=== PATIENT | male | born 1965 | race Caucasian/White ===

== ENCOUNTER 2018-06-13 08:22 | Inpatient (IN) | payer OTHER ==
[2018-06-13 10:40] VITALS: BMI 50.6
--- NOTE | 2018-06-13 13:57 | HP ---
Admission [facility] [place] [facility] Chief Complaint: REHAB TX FOR DRUG ADDICTION Allergies/Adverse Reactions: Allergies Allergy/AdvReac Type Severity Reaction Status Date / Time No Known Allergies Allergy Verified 06/13/18 11:17 History of Present Illness: 53 Y/O H/MALE WITH A HX MARIJUANA, COCAINE AND HEROIN DEPENDENCE ON MMTP SEEKING DETOX TX. Exam Limitations: No Limitations - Ebola screening Have you traveled outside of the country in the last 21 days: No Have you had contact with anyone from an Ebola affected area: No Have you been sick,other than usual withdrawal symptoms: No Do you have a fever: No - Review of Systems Constitutional: Chills, Night Sweats, Changes in sleep EENT: reports: Blurred Vision, Tearing, Nose Congestion, Dental Problems (NO TEETH--PT HAS OWN DENTURES IN HIS POCKET.) Respiratory: reports: Shortness of Breath (HX ASTHMA), Wheezing Cardiac: reports: Lightheadedness GI: reports: Constipated, Diarrhea, Nausea, Poor Fluid Intake, Vomiting, Indigestion, Abdominal cramping : reports: No Symptoms Reported Musculoskeletal: reports: No Symptoms Reported Integumentary: reports: Dryness, Rash (ITCHY FOOT RASH) Neuro: reports: Numbness, Tingling, Dizziness Endocrine: reports: No Symptoms Reported Hematology: reports: No Symptoms Reported Psychiatric: reports: Orientated x3, Anxious, Depressed Other Systems: Reviewed and Negative Patient History - Patient Medical History Hx Asthma: Yes (MDI) Hx Chronic Obstructive Pulmonary Disease (COPD): No Hx Cardiac Disorders: No Hx Hypertension: Yes (ON HCTZ 25 MG PO DAILY) Hx Hypercholesterolemia: No HX Cerebrovascular Accident: No Hx Seizures: No Hx Diabetes: Yes (BORDERLINE DM -ON PILL, LAST TAKEN ON 06/12/18) Hx Gastrointestinal Disorders: No Hx Genitourinary Disorders: No Hx Sexually Transmitted Disorders: No (DENIES) Hx Renal Disease (ESRD): No Hx Thyroid Disease: No Hx Human Immunodeficiency Virus (HIV): No (NEGATIVE HX) Hx Hepatitis C: No (DENIES) Hx Depression: Yes Hx Suicide Attempt: Yes (cut left arm in 2008;DENIES S/I TODAY) Hx Schizophrenia: Yes - Patient Surgical History Past Surgical History: No Hx Neurologic Surgery: No Hx Cataract Extraction: No Hx Cardiac Surgery: No Hx Lung Surgery: No Hx Breast Surgery: No Hx Breast Biopsy: No Hx Abdominal Surgery: No Hx Appendectomy: No Hx Cholecystectomy: No Hx Genitourinary Surgery: No Hx Orthopedic Surgery: No Anesthesia Reaction: No - PPD History Previous Implant?: Yes Documented Results: Negative w/o proof Implanted On Prior [facility] Admission?: Yes PPD to be Administered?: Yes - Reproductive History Patient is a Female of Child Bearing Age (11 -55 yrs old): No (MALE) - Smoking Cessation Smoking history: Current every day smoker Have you smoked in the past 12 months: Yes Aproximately how many cigarettes per day: 5 Hx Chewing Tobacco Use: No Initiated information on smoking cessation: Yes 'Breaking Loose' booklet given: 06/13/18 - Substance & Tx. History Hx Alcohol Use: No Hx Substance Use: Yes (HEROIN/MARIJUANA/COCAINE) Substance Use Type: Cocaine, Heroin, Marijuana Hx Substance Use Treatment: Yes (CURRENTLY AT [facility]) - Substances Abused Heroin Route: Inhalation Frequency: Daily Amount used: 5 bags Age of first use: 23 Date of Last Use: 06/12/18 Marijuana Route: Smoking Frequency: Daily Amount used: $10 Age of first use: 18 Date of Last Use: 06/11/18 Family Disease History - Family Disease History Family Disease History: Diabetes: Father (HTN), Mother (HTN), Heart Disease: Father, Respiratory: Mother, Other: Father, Mother Admission Physical Exam S - Vital Signs Vital Signs: Vital Signs - 24 hr 06/13/18 10:36 Temperature 97.6 F Pulse Rate 82 Respiratory 18 Rate Blood Pressure 141/71 - Physical General Appearance: Yes: No Apparent Distress, Obese, Anxious HEENTM: Yes: EOMI, Normocephalic, DEMAR, Pharynx Normal Respiratory: Yes: Chest Non-Tender, Normal Breath Sounds, No Respiratory Distress Neck: Yes: No masses,lesions,Nodules, Supple, Trachea in good position Cardiology: Yes: Regular Rhythm, Regular Rate, S1, S2 Abdominal: Yes: Normal Bowel Sounds, Non Tender, Protuberent Genitourinary: Yes: Other (N/C) Back: Yes: Within Normal Limits Musculoskeletal: Yes: full range of Motion, Gait Steady Extremities: Yes: Normal Range of Motion, Non-Tender Neurological: Yes: academic administrator II-XII NML intact, Fully Oriented, Alert, Motor Strength 5/5 Integumentary: Yes: Dry, Warm Lymphatic: Yes: Within Normal Limits - Diagnostic (1) Cannabis dependence, uncomplicated Current Visit: Yes Status: Acute (2) Methadone maintenance therapy patient Current Visit: Yes Status: Chronic (3) Asthma Current Visit: Yes Status: Acute Qualifiers: Asthma severity: mild Asthma persistence: intermittent Asthma complication type: with acute exacerbation Qualified Code(s): J45.21 - Mild intermittent asthma with (acute) exacerbation (4) Hypertension Current Visit: Yes Status: Chronic Qualifiers: Hypertension type: essential hypertension Qualified Code(s): I10 - Essential (primary) hypertension (5) Diabetes mellitus Current Visit: Yes Status: Chronic Qualifiers: Diabetes mellitus type: type 2 (6) Tinea pedis Current Visit: Yes Status: Acute Qualifiers: Laterality: bilateral Qualified Code(s): B35.3 - Tinea pedis Cleared for Admission [facility] - Detox or Rehab Claeared for Rehab Admission: Yes [facility] Breath Alcohol Content Breath Alcohol Content: 0 Urine Drug Screen - Results Drug Screen Negative: No Urine Drug Screen Results: THC-Marijuana, OPI-Opiates, MTD-Methadone, FEN- Fentanyl Inpatient Rehab Admission - Initial Determination Are CD services needed?: Yes Free of communicable disease: Yes Not in need of hospitalization: Yes - Rehab Admission Criteria Patient is meeting Inpatient Rehab admission criteria:: Yes
[2018-06-13] MEDS ORDERED: LOPERAMIDE HCL 2 MG CAPSULE PO PRN (14:08)
[2018-06-13] MEDS ORDERED: IBUPROFEN 400 MG TABLET (FP) PO PRN (14:08)
[2018-06-13] MEDS ORDERED: hydrOXYzine PAMOATE 50 MG CAPSULE (FP) PO PRN (14:08)
[2018-06-13] MEDS ORDERED: MAGNESIUM HYDROX 2400MG/30ML ORAL SUSPENSION 30 ML CUP PO PRN (14:08)
[2018-06-13] MEDS ORDERED: P-EPHED 60MG/TRIPROLIDI 2.5MG TABLET PO PRN (14:08)
[2018-06-13] MEDS ORDERED: MAG HYDROX/AL HYDROX/SIMETH 30 ML UNIT-DOSE CUP PO PRN (14:08)
[2018-06-13] MEDS ORDERED: ACETAMINOPHEN 325 MG TABLET (FP) PO PRN (14:08)
[2018-06-13] MEDS ORDERED: NICOTINE POLACRILEX 2 MG GUM BUC PRN (14:08)
[2018-06-13] MEDS ORDERED: MAGNESIUM CITRATE 300 ML BOTTLE PO PRN (14:08)
[2018-06-13] MEDS ORDERED: MENTHOL/PHENOL 1 EACH UD MM PRN (14:08)
[2018-06-13] MEDS ORDERED: guaiFENesin/D-METHORPHAN HB 10 ML UNIT-DOSE CUPS PO PRN (14:08)
[2018-06-13] MEDS ORDERED: METHADONE HCL 10 MG TABLET PO ONE (14:14)
[2018-06-13] MEDS ORDERED: METHADONE 40 MG, METHADONE 20 MG PO ONE (15:45)
[2018-06-13] MEDS ORDERED: METHADONE HCL 10 MG TABLET ONE (16:44)
[2018-06-13] MEDS ORDERED: TUBERCULIN PPD 5 TU/0.1ML VIAL ID ONE (16:45)
[2018-06-13] MEDS ORDERED: METHADONE HCL 40 MG DISPERSABLE TABLET ONE (16:45)
[2018-06-13] MEDS: metFORMIN HCL 500 MG TABLET (FP) PO SCH (16:56)
[2018-06-13] MEDS: HYDROCHLOROTHIAZIDE 25 MG TABLET (FP) PO SCH (16:56)
[2018-06-13] MEDS: NICOTINE 14 MG/24 HOURS TOPICAL PATCH TD SCH (16:58)
[2018-06-13] MEDS: ALBUTEROL SO4 2.5/IPRATROPIUM 0.5 INH SOL 3 ML VIAL.NEB. NEB SCH ×3 (17:00→22:24)
[2018-06-13 17:25] LABS: HEMATOCRIT 46.8 % (35.4-49); HEMOGLOBIN 15.3 GM/dL (11.7-16.9); MCH 29.6 pg (25.7-33.7); MCHC 32.8 g/dl (32.0-35.9); MEAN CELL VOLUME 90.2 fl (80-96); MEAN PLT VOLUME 10.2 fl (7.5-11.1); PLATELET COUNT 267 K/MM3 (134-434); RBC 5.18 M/mm3 (4.00-5.60); RDW 14.8 % (11.9-15.9); WHITE BLOOD COUNT 12.4 K/mm3 (4.0-10.0)
[2018-06-13 17:48] LABS: ALBUMIN 3.3 g/dl (3.4-5.0); ALK PHOS 109 U/L (45-117); ANION GAP 6 MMOL/L (8-16); BILIRUBIN,TOTAL 0.5 mg/dL (0.2-1.0); BLOOD UREA NITROGEN 12 mg/dL (7-18); CALCIUM 8.9 mg/dL (8.5-10.1); CHLORIDE 107 mmol/L (98-107); CO2 29 mmol/L (21-32); CREATININE 0.7 mg/dL (0.7-1.3); GLUCOSE,RANDOM 112 mg/dL (74-106); POTASSIUM 4.5 mmol/L (3.5-5.1); SGOT/AST 10 U/L (15-37); SGPT/ALT 18 U/L (12-78); SODIUM 142 mmol/L (136-145); TOT PROT 7.6 g/dl (6.4-8.2)
[2018-06-13] MEDS: THIAMINE HCL 100 MG TABLET (FP) PO SCH (21:40)
[2018-06-13] MEDS ORDERED: MELATONIN 5 MG TABLETS PO PRN (22:00)
[2018-06-13] MEDS ORDERED: metFORMIN HCL 500 MG TABLET (FP) PO SCH (22:00)
[2018-06-13] MEDS: TOLNAFTATE 1% CREAM 15 GM TUBE TP SCH (22:22)
[2018-06-13 23:59] LABS: URINE APPEARANCE CLEAR; URINE BILIRUBIN NEGATIVE (<2.0 mg/dL); URINE COLOR YELLOW; URINE GLUCOSE (UA) NEGATIVE (NEGATIVE); URINE KETONE NEGATIVE (NEGATIVE); URINE LEUK ESTERASE NEGATIVE (NEGATIVE); URINE NITRITE NEGATIVE (NEGATIVE); URINE PROTEIN NEGATIVE (NEGATIVE); URINE UROBILINOGEN NEGATIVE mg/dL (0.2-1.0)
[2018-06-14] MEDS: ALBUTEROL SO4 8 GM HFA INHALER IH PRN (01:00)
[2018-06-14] MEDS ORDERED: METHADONE HCL 10 MG TABLET PO SCH (06:00)
[2018-06-14] MEDS ORDERED: METHADONE HCL 40 MG DISPERSABLE TABLET ONE (06:48)
[2018-06-14] MEDS ORDERED: METHADONE HCL 10 MG TABLET ONE (06:48)
[2018-06-14] MEDS: metFORMIN HCL 500 MG TABLET (FP) PO SCH ×2 (06:49→16:38)
[2018-06-14] MEDS: METHADONE 40 MG, METHADONE 20 MG PO SCH (06:50)
[2018-06-14] MEDS: ALBUTEROL SO4 2.5/IPRATROPIUM 0.5 INH SOL 3 ML VIAL.NEB. NEB SCH ×7 (06:53→20:30)
[2018-06-14] MEDS: NICOTINE 14 MG/24 HOURS TOPICAL PATCH TD SCH (10:41)
[2018-06-14] MEDS: PRENATAL VITAMINS W/ FOLIC ACID TABLET (FP) PO SCH (10:41)
[2018-06-14] MEDS: TOLNAFTATE 1% CREAM 15 GM TUBE TP SCH ×2 (10:43→21:48)
[2018-06-14] MEDS: HYDROCHLOROTHIAZIDE 25 MG TABLET (FP) PO SCH (10:43)
--- NOTE | 2018-06-14 11:12 | HP ---
Psychiatrist Admission - Data Date of interview: 06/14/18 Admission source: [facility] Identifying data: This is the first [facility] admission for this single 53 years old male, father of 3 daughters, unemployed on SSI/SSD, domiciled living with family Medical History: Significant for bronchial asthma, hypertension, type 2 diabetes mellitus and obesity. Patient is on methadone 60 mg/day. Smokes 5 cigarettes daily Psychiatric History: Reports that his first psychiatric contact was in 2008 when he was admitted to [facility] for CAH and suicidal attempt by overdose. He was diagnosed with Schizophrenia and started on psychotropic medications. Reports one subsequent admission in 2009 or 2010 to same facility for suicidal attempt for self-mutilation(cutting arm, face). Reports that up to last month he was attending [facility] in [place] and he was prescribed medications. He has no recollection of name of medication. Claims his non-compliance is due to the fact he no longer lives in [place]. Besides sleeping medication, he does not want to be on any other medication during this admission. Physical/Sexual Abuse/Trauma History: Denies Additional Comment: Reports history of 2 previous arrests including one felony conviction Vital Signs: Vital Signs - 24 hr 06/13/18 06/14/18 06/14/18 16:20 03:15 03:30 Temperature 97.9 F Pulse Rate 85 Respiratory 18 18 18 Rate Blood Pressure 119/75 06/14/18 07:26 Temperature 98.0 F Pulse Rate 76 Respiratory 18 Rate Blood Pressure 118/65 Allergies/Adverse Reactions: Allergies Allergy/AdvReac Type Severity Reaction Status Date / Time No Known Allergies Allergy Verified 06/13/18 11:17 Date of last physical exam: 06/13/18 Concur with the findings of this exam: Yes - Substance Abuse/Tx History Hx Substance Use: Yes Substance Use Type: Heroin (Started using heroin at age 23, consumes 5 bags daily. Lst used on 06/12/18), Marijuana (Started smkoing marijuana at age 18, consumes $10 worth daily. Last smoked on 06/11/18) Hx Substance Use Treatment: Yes (Currently attends [facility]) Mental Status Exam - Mental Status Exam Alert and Oriented to: Time, Place, Person Cognitive Function: Fair Patient Appearance: Well Groomed Mood: Hopeful, Euthymic Patient Behavior: Cooperative Speech Pattern: Clear Voice Loudness: Normal Thought Process: Intact Thought Disorder: Not Present Hallucinations: Denies Suicidal Ideation: Denies Homicidal Ideation: Denies Insight/Judgement: Fair Sleep: Poorly Appetite: Good Muscle strength/Tone: Normal Gait/Station: Normal Psychiatric Findings - Problem List ([place] 1, 2,3) (1) Cannabis dependence Current Visit: Yes Status: Acute (2) Opioid dependence on agonist therapy Current Visit: Yes Status: Chronic (3) Nicotine dependence Current Visit: Yes Status: Chronic (4) Schizophrenia Current Visit: Yes Status: Chronic (5) Substance-induced sleep disorder Current Visit: Yes Status: Acute (6) Asthma Current Visit: Yes Status: Chronic Qualifiers: Asthma severity: mild Asthma persistence: intermittent Asthma complication type: with acute exacerbation Qualified Code(s): J45.21 - Mild intermittent asthma with (acute) exacerbation (7) Diabetes mellitus Current Visit: Yes Status: Chronic Qualifiers: Diabetes mellitus type: type 2 (8) Hypertension Current Visit: Yes Status: Chronic Qualifiers: Hypertension type: essential hypertension Qualified Code(s): I10 - Essential (primary) hypertension - Initial Treatment Plan Initial Treatment Plan: 1) Start Melatonin 10 mg po HS prn for iinsomnia. 2) Monitor progress
--- NOTE | 2018-06-14 15:41 | EKG ---
Test Reason : Blood Pressure : / mmHG Vent. Rate : 078 BPM Atrial Rate : 078 BPM P-R Int : 144 ms QRS Dur : 092 ms QT Int : 384 ms P-R-T Axes : 072 087 065 degrees QTc Int : 437 ms NORMAL SINUS RHYTHM NORMAL ECG NO PREVIOUS ECGS AVAILABLE Confirmed by DEVAN VALENZUELA MD ([id number]) on 06/14/2018 3:41:01 PM Referred By: Confirmed By:DEVAN VALENZUELA MD
[2018-06-14] MEDS ORDERED: ALBUTEROL SO4 2.5/IPRATROPIUM 0.5 INH SOL 3 ML VIAL.NEB. NEB PRN (16:06)
--- NOTE | 2018-06-14 16:10 | PN ---
[facility] Progress Note Note: Vital Signs Temperature 98.0 F 06/14/18 07:26 Pulse Rate 76 06/14/18 07:26 Respiratory Rate 18 06/14/18 07:26 Blood Pressure 118/65 06/14/18 07:26 O2 Sat by Pulse Oximetry (%) Laboratory Last Values WBC 12.4 K/mm3 (4.0-10.0) H 06/13/18 14:00 RBC 5.18 M/mm3 (4.00-5.60) 06/13/18 14:00 Hgb 15.3 GM/dL (11.7-16.9) 06/13/18 14:00 Hct 46.8 % (35.4-49) 06/13/18 14:00 MCV 90.2 fl (80-96) 06/13/18 14:00 MCH 29.6 pg (25.7-33.7) 06/13/18 14:00 MCHC 32.8 g/dl (32.0-35.9) 06/13/18 14:00 RDW 14.8 % (11.9-15.9) 06/13/18 14:00 Plt Count 267 K/MM3 (134-434) 06/13/18 14:00 MPV 10.2 fl (7.5-11.1) 06/13/18 14:00 Sickle Cell Screen Negative (NEGATIVE) 06/13/18 14:00 Sodium 142 mmol/L (136-145) 06/13/18 14:00 Potassium 4.5 mmol/L (3.5-5.1) 06/13/18 14:00 Chloride 107 mmol/L (98-107) 06/13/18 14:00 Carbon Dioxide 29 mmol/L (21-32) 06/13/18 14:00 Anion Gap 6 MMOL/L (8-16) L 06/13/18 14:00 BUN 12 mg/dL (7-18) 06/13/18 14:00 Creatinine 0.7 mg/dL (0.7-1.3) 06/13/18 14:00 Creat Clearance w eGFR > 60 (>60) 06/13/18 14:00 POC Glucometer 166 UNITS (80-120) 06/14/18 06:49 Random Glucose 112 mg/dL (74-106) H 06/13/18 14:00 Calcium 8.9 mg/dL (8.5-10.1) 06/13/18 14:00 Total Bilirubin 0.5 mg/dL (0.2-1.0) 06/13/18 14:00 AST 10 U/L (15-37) L 06/13/18 14:00 ALT 18 U/L (12-78) 06/13/18 14:00 Alkaline Phosphatase 109 U/L (45-117) 06/13/18 14:00 Total Protein 7.6 g/dl (6.4-8.2) 06/13/18 14:00 Albumin 3.3 g/dl (3.4-5.0) L 06/13/18 14:00 Urine Color Yellow 06/13/18 Unknown Urine Appearance Clear 06/13/18 Unknown Urine pH 5.0 (5.0-8.0) 06/13/18 Unknown Ur Specific [place] 1.027 (1.001-1.035) 06/13/18 Unknown Urine Protein Negative (NEGATIVE) 06/13/18 Unknown Urine Glucose (UA) Negative (NEGATIVE) 06/13/18 Unknown Urine Ketones Negative (NEGATIVE) 06/13/18 Unknown Urine Blood Negative (NEGATIVE) 06/13/18 Unknown Urine Nitrite Negative (NEGATIVE) 06/13/18 Unknown Urine Bilirubin Negative (<2.0 mg/dL) 06/13/18 Unknown Urine Urobilinogen Negative mg/dL (0.2-1.0) 06/13/18 Unknown Ur Leukocyte Esterase Negative (NEGATIVE) 06/13/18 Unknown RPR Titer Nonreactive (NONREACTIVE) 06/13/18 14:00 HIV 1&2 Antibody Screen Negative 06/13/18 14:00 HIV P24 Antigen Negative 06/13/18 14:00 elevated white count Patient c/o on SOB secondary to asthma and wheezing Patient Aox3 no distress + b/l wheezing s1 s2 no JVD skin intact full ROM ambulating in the unit asthma exacerbation plan: DUO NEB PRN Ventolin PRN prednisone 20mg x 3 days singulair 5 mg QHS elevated WBC will start z-neli increase fluids continue to monitor
[2018-06-14] MEDS ORDERED: AZITHROMYCIN 250 MG TABLET PO ONE (17:00)
[2018-06-14] MEDS ORDERED: AZITHROMYCIN 500 MG TABLET PO ONE (17:00)
[2018-06-14] MEDS: predniSONE 20 MG TABLET (UD) PO SCH (18:28)
[2018-06-14] MEDS: THIAMINE HCL 100 MG TABLET (FP) PO SCH (21:46)
[2018-06-14] MEDS: MONTELUKAST NA 10 MG TABLET PO SCH (21:46)
[2018-06-14] MEDS: MELATONIN 5 MG TABLETS PO PRN (21:46)
[2018-06-15] MEDS: ALBUTEROL SO4 8 GM HFA INHALER IH PRN ×2 (01:39→23:28)
[2018-06-15] MEDS ORDERED: METHADONE HCL 10 MG TABLET ONE (05:21)
[2018-06-15] MEDS ORDERED: METHADONE HCL 40 MG DISPERSABLE TABLET ONE (05:21)
[2018-06-15] MEDS: METHADONE 40 MG, METHADONE 20 MG PO SCH (06:21)
[2018-06-15] MEDS: metFORMIN HCL 500 MG TABLET (FP) PO SCH ×2 (06:21→16:51)
[2018-06-15] MEDS: predniSONE 20 MG TABLET (UD) PO SCH (10:33)
[2018-06-15] MEDS: ALBUTEROL SO4 2.5/IPRATROPIUM 0.5 INH SOL 3 ML VIAL.NEB. NEB SCH ×4 (10:33→21:33)
[2018-06-15] MEDS: PRENATAL VITAMINS W/ FOLIC ACID TABLET (FP) PO SCH (10:33)
[2018-06-15] MEDS: HYDROCHLOROTHIAZIDE 25 MG TABLET (FP) PO SCH (10:33)
[2018-06-15] MEDS: NICOTINE 14 MG/24 HOURS TOPICAL PATCH TD SCH (10:34)
[2018-06-15] MEDS: AZITHROMYCIN 250 MG TABLET PO SCH (10:35)
[2018-06-15] MEDS: TOLNAFTATE 1% CREAM 15 GM TUBE TP SCH ×2 (10:35→21:33)
[2018-06-15] MEDS: THIAMINE HCL 100 MG TABLET (FP) PO SCH (21:33)
[2018-06-15] MEDS: MONTELUKAST NA 10 MG TABLET PO SCH (21:33)
[2018-06-16] MEDS ORDERED: METHADONE HCL 40 MG DISPERSABLE TABLET ONE (04:26)
[2018-06-16] MEDS ORDERED: METHADONE HCL 10 MG TABLET ONE (04:26)
[2018-06-16] MEDS: metFORMIN HCL 500 MG TABLET (FP) PO SCH ×2 (06:15→16:57)
[2018-06-16] MEDS: METHADONE 40 MG, METHADONE 20 MG PO SCH (06:16)
[2018-06-16] MEDS: AZITHROMYCIN 250 MG TABLET PO SCH (10:24)
[2018-06-16] MEDS: PRENATAL VITAMINS W/ FOLIC ACID TABLET (FP) PO SCH (11:02)
[2018-06-16] MEDS: predniSONE 20 MG TABLET (UD) PO SCH (11:02)
[2018-06-16] MEDS: HYDROCHLOROTHIAZIDE 25 MG TABLET (FP) PO SCH (11:02)
[2018-06-16] MEDS: NICOTINE 14 MG/24 HOURS TOPICAL PATCH TD SCH (11:02)
[2018-06-16] MEDS: ALBUTEROL SO4 2.5/IPRATROPIUM 0.5 INH SOL 3 ML VIAL.NEB. NEB SCH ×3 (11:03→16:56)
[2018-06-16] MEDS: TOLNAFTATE 1% CREAM 15 GM TUBE TP SCH ×2 (11:04→21:34)
[2018-06-16] MEDS: ALBUTEROL SO4 8 GM HFA INHALER IH PRN (16:57)
[2018-06-16] MEDS: THIAMINE HCL 100 MG TABLET (FP) PO SCH (21:34)
[2018-06-16] MEDS: MONTELUKAST NA 10 MG TABLET PO SCH (21:34)
[2018-06-16] MEDS: MELATONIN 5 MG TABLETS PO PRN (21:35)
[2018-06-17] MEDS ORDERED: METHADONE HCL 40 MG DISPERSABLE TABLET ONE (04:33)
[2018-06-17] MEDS ORDERED: METHADONE HCL 10 MG TABLET ONE (04:33)
[2018-06-17] MEDS: ALBUTEROL SO4 8 GM HFA INHALER IH PRN ×2 (04:42→16:45)
[2018-06-17] MEDS: metFORMIN HCL 500 MG TABLET (FP) PO SCH ×2 (07:09→16:45)
[2018-06-17] MEDS: METHADONE 40 MG, METHADONE 20 MG PO SCH (07:09)
[2018-06-17] MEDS: ALBUTEROL SO4 2.5/IPRATROPIUM 0.5 INH SOL 3 ML VIAL.NEB. NEB SCH ×2 (09:00→16:45)
[2018-06-17] MEDS: AZITHROMYCIN 250 MG TABLET PO SCH (10:35)
[2018-06-17] MEDS: HYDROCHLOROTHIAZIDE 25 MG TABLET (FP) PO SCH (10:35)
[2018-06-17] MEDS: PRENATAL VITAMINS W/ FOLIC ACID TABLET (FP) PO SCH (10:36)
[2018-06-17] MEDS: NICOTINE 14 MG/24 HOURS TOPICAL PATCH TD SCH (10:36)
[2018-06-17] MEDS: TOLNAFTATE 1% CREAM 15 GM TUBE TP SCH ×2 (10:36→21:50)
[2018-06-17] MEDS: THIAMINE HCL 100 MG TABLET (FP) PO SCH (21:50)
[2018-06-17] MEDS: MELATONIN 5 MG TABLETS PO PRN (21:50)
[2018-06-17] MEDS: MONTELUKAST NA 10 MG TABLET PO SCH (21:50)
[2018-06-18] MEDS ORDERED: METHADONE HCL 10 MG TABLET ONE (03:22)
[2018-06-18] MEDS ORDERED: METHADONE HCL 40 MG DISPERSABLE TABLET ONE (03:23)
[2018-06-18] MEDS: METHADONE 40 MG, METHADONE 20 MG PO SCH (06:19)
[2018-06-18] MEDS: metFORMIN HCL 500 MG TABLET (FP) PO SCH ×2 (06:19→17:22)
[2018-06-18] MEDS: NICOTINE 14 MG/24 HOURS TOPICAL PATCH TD SCH (10:54)
[2018-06-18] MEDS: PRENATAL VITAMINS W/ FOLIC ACID TABLET (FP) PO SCH (10:54)
[2018-06-18] MEDS: HYDROCHLOROTHIAZIDE 25 MG TABLET (FP) PO SCH (10:54)
[2018-06-18] MEDS: AZITHROMYCIN 250 MG TABLET PO SCH (10:55)
[2018-06-18] MEDS: ALBUTEROL SO4 2.5/IPRATROPIUM 0.5 INH SOL 3 ML VIAL.NEB. NEB SCH (10:55)
[2018-06-18] MEDS: TOLNAFTATE 1% CREAM 15 GM TUBE TP SCH ×2 (10:56→21:53)
[2018-06-18] MEDS: MELATONIN 5 MG TABLETS PO PRN (21:52)
[2018-06-18] MEDS: THIAMINE HCL 100 MG TABLET (FP) PO SCH (21:52)
[2018-06-18] MEDS: MONTELUKAST NA 10 MG TABLET PO SCH (21:52)
[2018-06-19] MEDS ORDERED: METHADONE HCL 10 MG TABLET ONE (06:28)
[2018-06-19] MEDS ORDERED: METHADONE HCL 40 MG DISPERSABLE TABLET ONE (06:28)
[2018-06-19] MEDS: METHADONE 40 MG, METHADONE 20 MG PO SCH (06:29)
[2018-06-19] MEDS: metFORMIN HCL 500 MG TABLET (FP) PO SCH ×2 (06:29→17:14)
[2018-06-19] MEDS: ALBUTEROL SO4 2.5/IPRATROPIUM 0.5 INH SOL 3 ML VIAL.NEB. NEB SCH ×2 (06:31→10:38)
[2018-06-19] MEDS: PRENATAL VITAMINS W/ FOLIC ACID TABLET (FP) PO SCH (10:36)
[2018-06-19] MEDS: NICOTINE 14 MG/24 HOURS TOPICAL PATCH TD SCH (10:36)
[2018-06-19] MEDS: TOLNAFTATE 1% CREAM 15 GM TUBE TP SCH ×2 (10:36→21:43)
[2018-06-19] MEDS: HYDROCHLOROTHIAZIDE 25 MG TABLET (FP) PO SCH (10:36)
[2018-06-19] MEDS: ALBUTEROL SO4 8 GM HFA INHALER IH PRN (10:37)
[2018-06-19] MEDS: THIAMINE HCL 100 MG TABLET (FP) PO SCH (21:42)
[2018-06-19] MEDS: MONTELUKAST NA 10 MG TABLET PO SCH (21:42)
[2018-06-19] MEDS: MELATONIN 5 MG TABLETS PO PRN (21:43)
[2018-06-20] MEDS ORDERED: METHADONE HCL 40 MG DISPERSABLE TABLET ONE (06:03)
[2018-06-20] MEDS ORDERED: METHADONE HCL 10 MG TABLET ONE (06:03)
[2018-06-20] MEDS: metFORMIN HCL 500 MG TABLET (FP) PO SCH ×2 (06:14→17:12)
[2018-06-20] MEDS: METHADONE 40 MG, METHADONE 20 MG PO SCH (06:14)
[2018-06-20] MEDS: TOLNAFTATE 1% CREAM 15 GM TUBE TP SCH ×2 (10:42→21:42)
[2018-06-20] MEDS: PRENATAL VITAMINS W/ FOLIC ACID TABLET (FP) PO SCH (10:42)
[2018-06-20] MEDS: HYDROCHLOROTHIAZIDE 25 MG TABLET (FP) PO SCH (10:42)
[2018-06-20] MEDS: NICOTINE 14 MG/24 HOURS TOPICAL PATCH TD SCH (10:43)
[2018-06-20] MEDS: ALBUTEROL SO4 8 GM HFA INHALER IH PRN (19:53)
[2018-06-20] MEDS: MELATONIN 5 MG TABLETS PO PRN (21:41)
[2018-06-20] MEDS: MONTELUKAST NA 10 MG TABLET PO SCH (21:41)
[2018-06-20] MEDS: THIAMINE HCL 100 MG TABLET (FP) PO SCH (21:41)
[2018-06-21] MEDS ORDERED: METHADONE HCL 40 MG DISPERSABLE TABLET ONE (04:36)
[2018-06-21] MEDS ORDERED: METHADONE HCL 10 MG TABLET ONE (04:36)
[2018-06-21] MEDS: metFORMIN HCL 500 MG TABLET (FP) PO SCH ×2 (06:26→17:14)
[2018-06-21] MEDS: METHADONE 40 MG, METHADONE 20 MG PO SCH (06:27)
[2018-06-21] MEDS: HYDROCHLOROTHIAZIDE 25 MG TABLET (FP) PO SCH (10:42)
[2018-06-21] MEDS: PRENATAL VITAMINS W/ FOLIC ACID TABLET (FP) PO SCH (10:42)
[2018-06-21] MEDS: NICOTINE 14 MG/24 HOURS TOPICAL PATCH TD SCH (10:44)
[2018-06-21] MEDS: TOLNAFTATE 1% CREAM 15 GM TUBE TP SCH ×2 (11:08→21:46)
[2018-06-21] MEDS: MELATONIN 5 MG TABLETS PO PRN (21:45)
[2018-06-21] MEDS: THIAMINE HCL 100 MG TABLET (FP) PO SCH (21:45)
[2018-06-21] MEDS: MONTELUKAST NA 10 MG TABLET PO SCH (21:45)
[2018-06-22] MEDS ORDERED: METHADONE HCL 40 MG DISPERSABLE TABLET ONE (04:29)
[2018-06-22] MEDS ORDERED: METHADONE HCL 10 MG TABLET ONE (04:29)
[2018-06-22] MEDS: metFORMIN HCL 500 MG TABLET (FP) PO SCH ×2 (06:24→17:56)
[2018-06-22] MEDS: METHADONE 40 MG, METHADONE 20 MG PO SCH (06:25)
[2018-06-22] MEDS ORDERED: PT OWN MED DRAWER 7, Y5N ONE (09:27)
[2018-06-22] MEDS: PRENATAL VITAMINS W/ FOLIC ACID TABLET (FP) PO SCH (10:33)
[2018-06-22] MEDS: NICOTINE 14 MG/24 HOURS TOPICAL PATCH TD SCH (10:34)
[2018-06-22] MEDS: TOLNAFTATE 1% CREAM 15 GM TUBE TP SCH ×2 (10:34→21:52)
[2018-06-22] MEDS: HYDROCHLOROTHIAZIDE 25 MG TABLET (FP) PO SCH (10:34)
[2018-06-22] MEDS: MELATONIN 5 MG TABLETS PO PRN (21:50)
[2018-06-22] MEDS: MONTELUKAST NA 10 MG TABLET PO SCH (21:50)
[2018-06-22] MEDS: THIAMINE HCL 100 MG TABLET (FP) PO SCH (21:50)
[2018-06-22] MEDS ORDERED: ONDANSETRON *ODT* 4 MG TABLET SL ONE (23:56)
[2018-06-23] MEDS ORDERED: METHADONE HCL 10 MG TABLET ONE (05:27)
[2018-06-23] MEDS ORDERED: METHADONE HCL 40 MG DISPERSABLE TABLET ONE (05:27)
[2018-06-23] MEDS: metFORMIN HCL 500 MG TABLET (FP) PO SCH ×2 (06:02→16:51)
[2018-06-23] MEDS: METHADONE 40 MG, METHADONE 20 MG PO SCH (06:02)
[2018-06-23] MEDS: HYDROCHLOROTHIAZIDE 25 MG TABLET (FP) PO SCH (10:24)
[2018-06-23] MEDS: PRENATAL VITAMINS W/ FOLIC ACID TABLET (FP) PO SCH (10:24)
[2018-06-23] MEDS: NICOTINE 14 MG/24 HOURS TOPICAL PATCH TD SCH (10:25)
[2018-06-23] MEDS: TOLNAFTATE 1% CREAM 15 GM TUBE TP SCH ×2 (10:25→21:56)
[2018-06-23] MEDS: THIAMINE HCL 100 MG TABLET (FP) PO SCH (21:56)
[2018-06-23] MEDS: MELATONIN 5 MG TABLETS PO PRN (21:57)
[2018-06-23] MEDS: MONTELUKAST NA 10 MG TABLET PO SCH (22:09)
[2018-06-24] MEDS ORDERED: METHADONE HCL 40 MG DISPERSABLE TABLET ONE (05:55)
[2018-06-24] MEDS ORDERED: METHADONE HCL 10 MG TABLET ONE (05:55)
[2018-06-24] MEDS: metFORMIN HCL 500 MG TABLET (FP) PO SCH ×2 (06:28→17:03)
[2018-06-24] MEDS: METHADONE 40 MG, METHADONE 20 MG PO SCH (06:28)
[2018-06-24] MEDS: HYDROCHLOROTHIAZIDE 25 MG TABLET (FP) PO SCH (10:33)
[2018-06-24] MEDS: NICOTINE 14 MG/24 HOURS TOPICAL PATCH TD SCH (10:34)
[2018-06-24] MEDS: PRENATAL VITAMINS W/ FOLIC ACID TABLET (FP) PO SCH (10:34)
[2018-06-24] MEDS: ALBUTEROL SO4 8 GM HFA INHALER IH PRN (10:34)
[2018-06-24] MEDS: TOLNAFTATE 1% CREAM 15 GM TUBE TP SCH ×2 (10:36→21:58)
[2018-06-24] MEDS: MELATONIN 5 MG TABLETS PO PRN (21:58)
[2018-06-24] MEDS: THIAMINE HCL 100 MG TABLET (FP) PO SCH (21:58)
[2018-06-24] MEDS: MONTELUKAST NA 10 MG TABLET PO SCH (21:58)
[2018-06-25] MEDS ORDERED: METHADONE HCL 10 MG TABLET ONE (02:44)
[2018-06-25] MEDS ORDERED: METHADONE HCL 40 MG DISPERSABLE TABLET ONE (02:44)
[2018-06-25] MEDS: METHADONE 40 MG, METHADONE 20 MG PO SCH (06:05)
[2018-06-25] MEDS: metFORMIN HCL 500 MG TABLET (FP) PO SCH ×2 (06:06→17:05)
[2018-06-25] MEDS: HYDROCHLOROTHIAZIDE 25 MG TABLET (FP) PO SCH (11:19)
[2018-06-25] MEDS: NICOTINE 14 MG/24 HOURS TOPICAL PATCH TD SCH (11:19)
[2018-06-25] MEDS: PRENATAL VITAMINS W/ FOLIC ACID TABLET (FP) PO SCH (11:20)
[2018-06-25] MEDS: TOLNAFTATE 1% CREAM 15 GM TUBE TP SCH ×2 (11:20→21:54)
[2018-06-25] MEDS: MELATONIN 5 MG TABLETS PO PRN (21:53)
[2018-06-25] MEDS: MONTELUKAST NA 10 MG TABLET PO SCH (21:53)
[2018-06-25] MEDS: THIAMINE HCL 100 MG TABLET (FP) PO SCH (21:53)
[2018-06-26] MEDS ORDERED: METHADONE HCL 10 MG TABLET ONE (03:22)
[2018-06-26] MEDS ORDERED: METHADONE HCL 40 MG DISPERSABLE TABLET ONE (03:23)
[2018-06-26] MEDS: METHADONE 40 MG, METHADONE 20 MG PO SCH (06:05)
[2018-06-26] MEDS: metFORMIN HCL 500 MG TABLET (FP) PO SCH (06:07)
[2018-06-26 06:53] VITALS: BP 118/82; PULSE 79; TEMP 98.1
--- NOTE | 2018-06-26 08:53 | PN ---
Psychiatric Progress Note Vital Signs: Vital Signs Period Temp Pulse Resp BP Sys/Engel Pulse Ox Last 24 Hr 98.1 F 79-81 16-20 118-128/67-82 Date of Session: 06/26/18 Chief Complaint:: "Discharge" HPI: Patient was admitted to for opiate dependence. ROS: Significant for bronchial asthma, hypertension, type 2 diabetes mellitus and obesity. Current Medications: Active Medications Generic Name Dose Route Start Last Admin Trade Name Freq PRN Reason Stop Dose Admin Acetaminophen 650 mg 06/13/18 14:08 Tylenol - PO Q4H PRN FEVER Al Hydroxide/Mg Hydroxide 30 ml 06/13/18 14:08 06/22/18 21:51 Mylanta Oral Suspension - PO 30 ml Q6H PRN Administration DYSPEPSIA Albuterol Sulfate 2 puff 06/13/18 14:13 06/24/18 10:34 Ventolin Hfa Inhaler - IH 2 inh Q4H PRN Administration ASTHMA Albuterol/Ipratropium 1 amp 06/14/18 16:06 06/21/18 10:44 Duoneb - NEB 1 amp QID PRN Administration WHEEZING Eucalyptus/Menthol/Phenol/Sorbitol 1 each 06/13/18 14:08 Cepastat Lozenge - MM Q4H PRN SORE THROAT Guaifenesin 10 ml 06/13/18 14:08 Robitussin Dm - PO Q6H PRN COUGH Hydrochlorothiazide 25 mg 06/13/18 15:30 06/25/18 11:19 Hctz - PO 25 mg DAILY CINDY Administration Hydroxyzine Pamoate 50 mg 06/13/18 14:08 Vistaril - PO Q4H PRN AGITATION Ibuprofen 400 mg 06/13/18 14:08 Motrin - PO Q6H PRN Pain level 4-6 Loperamide HCl 4 mg 06/13/18 14:08 Imodium - PO Q6H PRN DIARRHEA Magnesium Citrate 300 ml 06/13/18 14:08 Citroma - PO Q48H PRN CONSTIPATION Magnesium Hydroxide 30 ml 06/13/18 14:08 Milk Of Magnesia - PO DAILY PRN CONSTIPATION Melatonin 10 mg 06/14/18 12:03 06/25/18 21:53 Melatonin PO 10 mg HS PRN Administration INSOMNIA Metformin HCl 500 mg 06/13/18 16:30 06/26/18 06:07 Glucophage - PO 500 mg BID@0700,1630 CINDY Administration Methadone HCl 40 mg/ Methadone 60 mg 06/20/18 06:00 06/26/18 06:05 HCl 20 mg PO 60 mg DAILY@0600 CINDY Administration Montelukast Sodium 10 mg 06/14/18 22:00 06/25/18 21:53 Singulair - PO 10 mg HS CINDY Administration Nicotine 14 mg 06/13/18 15:30 06/25/18 11:19 Nicoderm Patch - TD 14 mg DAILY CINDY Administration Nicotine Polacrilex 2 mg 06/13/18 14:08 Nicorette Gum - BUC Q2H PRN NICOTINE REPLACEMENT RX Multivit/Folic Acid/Iron 1 tab 06/14/18 10:00 06/25/18 11:20 Vitamins (Sjr) - PO 1 tab DAILY CINDY Administration Pseudoephedrine/Triprolidine 1 combo 06/13/18 14:08 Actifed - PO TID PRN NASAL CONGESTION Thiamine HCl 100 mg 06/13/18 22:00 06/25/18 21:53 Vitamin B1 - PO 100 mg HS CINDY Administration Tolnaftate 1 applic 06/13/18 22:00 06/25/18 21:54 Tinactin 1% Cream - TP Not Given BID [facility] Medication(s) Change(s): No. Current Side Effect: No Lab tests ordered: No Lab tests reviewed: Yes Provider note:: Patient able to complete rehab on 06/26/18. He has met his treatment goals and is able to identify behaviors that contribute to relapsing. Through participation of this program patient has learned the importance of changing his behaviors and the need for more struture in his life. Pt. will continue to address his issues at the [facility] outpatient clinic. Patient is stable for discharge on 06/26/18. Total face to face time:: 35 Mental Status Exam - Mental Status Exam Alert and Oriented to: Time, Place, Person Cognitive Function: Good Patient Appearance: Well Groomed Mood: Hopeful Affect: Appropriate, Mood Congruent Patient Behavior: Appropriate, Cooperative Speech Pattern: Clear, Appropriate Voice Loudness: Normal Thought Process: Intact, Goal Oriented Thought Disorder: Not Present Hallucinations: Denies Suicidal Ideation: Denies Homicidal Ideation: Denies Insight/Judgement: Good Sleep: Well Appetite: Good Muscle strength/Tone: Normal Gait/Station: Normal Psychiatric Treatment Plan - Problem List (1) Cannabis dependence Current Visit: Yes (2) Substance-induced sleep disorder Current Visit: Yes (3) Nicotine dependence Current Visit: Yes (4) Opioid dependence on agonist therapy Current Visit: Yes (5) Schizophrenia Current Visit: Yes
[2018-06-26] MEDS: TOLNAFTATE 1% CREAM 15 GM TUBE TP SCH (10:58)
[2018-06-26] MEDS: NICOTINE 14 MG/24 HOURS TOPICAL PATCH TD SCH (10:58)
[2018-06-26] MEDS: PRENATAL VITAMINS W/ FOLIC ACID TABLET (FP) PO SCH (10:58)
[2018-06-26] MEDS: HYDROCHLOROTHIAZIDE 25 MG TABLET (FP) PO SCH (10:58)
--- NOTE | 2018-06-26 11:11 | PN ---
[facility] Progress Note Note: PT REPORTS HE HAS A PRIMARY CARE DOCTOR WITH [facility]. RX SENT TO [facility] FOR PT PICKUP AFER DISCHARGE. FOLLOW UP WITH PMD FOR MEDICAL MANAGEMENT IN 1-2 WEEKS.
== END 2018-06-26 11:45 | disposition home or self-care (01) | DRG 895 ==
LOC: YASAS 08:22 → Y5N 15:17
PROVIDERS: ADMIT Psychiatry & Neurology Psychiatry; ATTEND Psychiatry & Neurology Psychiatry
PROC: HZ42ZZZ Group Counseling for Substance Abuse Treatment, Cognitive-Behavioral (ICD-10-PCS; principal; 2018-06-13)
DX: F14.20 Cocaine dependence, uncomplicated (principal); F11.20 Opioid dependence, uncomplicated; F19.282 Other psychoactive substance dependence with psychoactive substance-induced sleep disorder; J45.21 Mild intermittent asthma with (acute) exacerbation; Z68.43 Body mass index [BMI] 50.0-59.9, adult; F12.20 Cannabis dependence, uncomplicated; F20.9 Schizophrenia, unspecified; I10 Essential (primary) hypertension; E11.9 Type 2 diabetes mellitus without complications; Z79.84 Long term (current) use of oral hypoglycemic drugs; B35.3 Tinea pedis; E66.01 Morbid (severe) obesity due to excess calories
CPT/HCPCS: 36415; 80053; 81003; 82962; 85027; 85660; 86593; 86803; 87389; 93005; 93010; 94640; J7620; Q0162

== ENCOUNTER 2018-09-08 14:12 | Inpatient (IN) | payer OTHER ==
[2018-09-08 15:10] VITALS: BMI 52.4
--- NOTE | 2018-09-08 17:56 | HP ---
COWS - Scale Resting Pulse: 2= [place] 101-120 Sweatin= Chills/Flushing Restless Observation: 1= Difficult to Sit Still Pupil Size: 1= Pupils >than Normal Bone or Joint Aches: 2= Severe Diffuse Aches Runny Nose/ Eye Tearin= Runny Nose/Eyes GI Upset > 30mins: 2= Nausea/Diarrhea Tremor Observation: 2= Slight Tremor Visible Yawning Observation: 1= 1-2x During Session Anxiety or Irritability: 2=Irritable/Anxious Goose Flesh Skin: 0=Smooth Skin COWS Score: 16 CIWA Score Nausea/Vomitin Muscle Tremors: 2 Anxiety: 2 Agitation: 2 Paroxysmal Sweats: 1-Minimal Palms Moist Orientation: 0-Oriented Tacttile Disturbances: 1-Very Mild Itch/Numbness Auditory Disturbances: 1-Very Mild Visual Disturbances: 0-None Headache: 2-Mild CIWA-Ar Total Score: 13 - Admission Criteria OASAS Guidelines: Admission for Medically Managed Detox: Requires at least one of the followin. CIWA greater than 12 2. Seizures within the past 24 hours 3. Delirium tremens within the past 24 hours 4. Hallucinations within the past 24 hours 5. Acute intervention needed for co occurring medical disorder 6. Acute intervention needed for co occurring psychiatric disorder 7. Severe withdrawal that cannot be handled at a lower level of care (continued vomiting, continued diarrhea, abnormal vital signs) requiring intravenous medication and/or fluids 8. Admission ROS [facility] Chief Complaint: i nne help to top using heroin,alcohol,marijuana Allergies/Adverse Reactions: Allergies Allergy/AdvReac Type Severity Reaction Status Date / Time No Known Allergies Allergy Verified 09/08/18 18:20 History of Present Illness: this 53 years old male with heroin,alcohoo and marijuana dependence,seeking detox,withdrawal symptom,last detox 03/18 promeza completed, [facility] 06/13/18 to 06/26/18 multiple admissions in the past but keep relapsing syncope history of hypertension ,non compliance nicotine dependence obesity asthma longest period of sobriety 10 years plan for inpatient rehab after detox - Ebola screening Have you traveled outside of the country in the last 21 days: No (N) Have you had contact with anyone from an Ebola affected area: No Have you been sick,other than usual withdrawal symptoms: No Do you have a fever: No - Review of Systems Constitutional: Chills, Loss of Appetite, Malaise, Night Sweats, Changes in sleep, Weakness EENT: reports: Tearing, Nose Congestion Respiratory: reports: No Symptoms reported, Other (asthma) Cardiac: reports: Palpitations GI: reports: Diarrhea, Nausea, Abdominal cramping : reports: No Symptoms Reported Musculoskeletal: reports: Back Pain, Joint Pain, Muscle Pain, Joint Stiffness Integumentary: reports: Dryness Neuro: reports: Tremors Endocrine: reports: No Symptoms Reported Hematology: reports: No Symptoms Reported Psychiatric: reports: No Sypmtoms Reported, Judgement Intact, Mood/Affect Appropiate, Orientated x3 Patient History - Patient Medical History Hx Asthma: Yes (MDI) Hx Chronic Obstructive Pulmonary Disease (COPD): No Hx Cardiac Disorders: No Hx Hypertension: Yes (ON HCTZ 25 MG PO DAILY) Hx Hypercholesterolemia: No HX Cerebrovascular Accident: No Hx Seizures: No Hx Diabetes: Yes (BORDERLINE DM -ON PILL, LAST TAKEN ON 06/12/18) Hx Gastrointestinal Disorders: No Hx Genitourinary Disorders: No Hx Sexually Transmitted Disorders: No (DENIES) Hx Renal Disease (ESRD): No Hx Thyroid Disease: No Hx Human Immunodeficiency Virus (HIV): No (NEGATIVE HX) Hx Hepatitis C: No (DENIES) Hx Depression: Yes Hx Suicide Attempt: Yes (cut left arm in 2008;DENIES S/I TODAY) Hx Schizophrenia: Yes (no med) Other Medical History: no suicdal,no homicidal - Patient Surgical History Past Surgical History: No Hx Neurologic Surgery: No Hx Cataract Extraction: No Hx Cardiac Surgery: No Hx Lung Surgery: No Hx Breast Surgery: No Hx Breast Biopsy: No Hx Abdominal Surgery: No Hx Appendectomy: No Hx Cholecystectomy: No Hx Genitourinary Surgery: No Hx Section: No Hx Orthopedic Surgery: No Anesthesia Reaction: No - PPD History Previous Implant?: Yes Documented Results: Negative w/proof Implanted On Prior R Admission?: Yes Date: 06/15/18 Results: 0 mm PPD to be Administered?: No - Smoking Cessation Smoking history: Current every day smoker Have you smoked in the past 12 months: Yes Aproximately how many cigarettes per day: 10 Cigars Per Day: 0 Hx Chewing Tobacco Use: No Initiated information on smoking cessation: Yes 'Breaking Loose' booklet given: 09/08/18 - Substance & Tx. History Hx Alcohol Use: Yes Hx Substance Use: Yes Substance Use Type: Alcohol, Heroin, Tranquilizers Hx Substance Use Treatment: Yes (detox pro[facility] 03/18 completed,[facility] to 06/26/18) - Substances Abused Heroin Route: Inhalation Frequency: Daily Amount used: 6 to 7 bags Age of first use: 23 Date of Last Use: 09/07/18 Alcohol Route: Oral Frequency: Daily Amount used: 2pints of alise/6 packs of 20 ozs of beer Age of first use: 20 Date of Last Use: 09/07/18 Marijuana/Hashish Route: Smoking Frequency: 3-6 times per week Amount used: 30$ Age of first use: 18 Date of Last Use: 09/06/18 Family Disease History - Family Disease History Family Disease History: Diabetes: Father (HTN), Mother (HTN), Heart Disease: Father, Respiratory: Mother, Other: Father, Mother Admission Physical Exam S - Vital Signs Vital Signs: Vital Signs - 24 hr 09/08/18 15:08 Temperature 98.8 F Pulse Rate 102 H Respiratory 20 Rate Blood Pressure 154/99 - Physical General Appearance: Yes: Moderate Distress, Obese, Tremorous, Irritable, Sweating, Anxious HEENTM: Yes: Normal ENT Inspection, DEMAR, Pharynx Normal Respiratory: Yes: Normal Breath Sounds, No Respiratory Distress, Wheezing Neck: Yes: Within Normal Limits, Supple, Trachea in good position Breast: Yes: Within Normal Limits Cardiology: Yes: Tachycardia Abdominal: Yes: Within Normal Limits, Normal Bowel Sounds, Non Tender, Soft Genitourinary: Yes: Within Normal Limits Back: Yes: Muscle Spasm Musculoskeletal: Yes: full range of Motion, Back pain, Joint Stiffness, Muscle Pain Extremities: Yes: Normal Range of Motion, Tremors Neurological: Yes: jordan worker II-XII NML intact, Fully Oriented, Alert, Motor Strength 5/5 Integumentary: Yes: Dry Lymphatic: Yes: Within Normal Limits - Diagnostic (1) Opioid dependence with withdrawal Current Visit: Yes Status: Acute (2) Alcohol dependence with uncomplicated withdrawal Current Visit: Yes Status: Acute (3) DM2 (diabetes mellitus, type 2) Current Visit: Yes Status: Acute (4) Asthma Current Visit: No Status: Chronic Qualifiers: Asthma severity: mild Asthma persistence: intermittent Asthma complication type: with acute exacerbation Qualified Code(s): J45.21 - Mild intermittent asthma with (acute) exacerbation (5) Hypertension Current Visit: No Status: Chronic Qualifiers: Hypertension type: unspecified Qualified Code(s): I10 - Essential (primary ) hypertension (6) Schizophrenia Current Visit: No Status: Chronic (7) Essential hypertension Current Visit: Yes Status: Acute (8) Syncope Current Visit: Yes Status: Acute (9) Obesity Current Visit: Yes Status: Acute Cleared for Admission S - Detox or Rehab [facility] Level of Care: Medically Managed Detox Regimen/Protocol: Methadone/Librium S Breath Alcohol Content Breath Alcohol Content: 0 Urine Drug Screen - Results Drug Screen Negative: No Urine Drug Screen Results: THC-Marijuana, OPI-Opiates, MTD-Methadone, FEN- Fentanyl
[2018-09-08] MEDS ORDERED: METHADONE HCL 10 MG TABLET (FOR DETOX USE ONLY) PO ONE ×2 (18:10→23:00)
[2018-09-08] MEDS ORDERED: hydrOXYzine PAMOATE 50 MG CAPSULE (FP) PO PRN (18:10)
[2018-09-08] MEDS ORDERED: P-EPHED 60MG/TRIPROLIDI 2.5MG TABLET PO PRN (18:10)
[2018-09-08] MEDS ORDERED: ACETAMINOPHEN 325 MG TABLET (FP) PO PRN (18:10)
[2018-09-08] MEDS ORDERED: MAGNESIUM HYDROX 2400MG/30ML ORAL SUSPENSION 30 ML CUP PO PRN (18:10)
[2018-09-08] MEDS ORDERED: MAG HYDROX/AL HYDROX/SIMETH 30 ML UNIT-DOSE CUP PO PRN (18:10)
[2018-09-08] MEDS ORDERED: MAGNESIUM CITRATE 300 ML BOTTLE PO PRN (18:10)
[2018-09-08] MEDS ORDERED: LOPERAMIDE HCL 2 MG CAPSULE PO PRN (18:10)
[2018-09-08] MEDS ORDERED: IBUPROFEN 400 MG TABLET (FP) PO PRN (18:10)
[2018-09-08] MEDS ORDERED: NICOTINE POLACRILEX 2 MG GUM BC PRN (18:10)
[2018-09-08] MEDS ORDERED: guaiFENesin/D-METHORPHAN HB 10 ML UNIT-DOSE CUPS PO PRN (18:10)
[2018-09-08] MEDS ORDERED: MENTHOL/PHENOL 1 EACH UD MM PRN (18:10)
[2018-09-08] MEDS ORDERED: ALBUTEROL SO4 2.5/IPRATROPIUM 0.5 INH SOL 3 ML VIAL.NEB. NEB PRN (18:14)
[2018-09-08] MEDS: chlordiazePOXIDE HCL 25 MG CAPSULE PO PRN (19:15)
[2018-09-08] MEDS: NICOTINE 21 MG/24 HOURS TOPICAL PATCH TD SCH (19:16)
[2018-09-08 22:33] LABS: URINE APPEARANCE CLEAR; URINE BILIRUBIN NEGATIVE (<2.0 mg/dL); URINE COLOR YELLOW; URINE GLUCOSE (UA) NEGATIVE (NEGATIVE); URINE KETONE NEGATIVE (NEGATIVE); URINE LEUK ESTERASE NEGATIVE (NEGATIVE); URINE NITRITE NEGATIVE (NEGATIVE); URINE PROTEIN NEGATIVE (NEGATIVE); URINE UROBILINOGEN 4.0 E.U/dl mg/dL (0.2-1.0)
[2018-09-08] MEDS: MONTELUKAST NA 10 MG TABLET PO SCH (22:43)
[2018-09-08] MEDS: THIAMINE HCL 100 MG TABLET (FP) PO SCH (22:43)
[2018-09-08] MEDS: chlordiazePOXIDE HCL 25 MG CAPSULE PO SCH (22:43)
[2018-09-09] MEDS: chlordiazePOXIDE HCL 25 MG CAPSULE PO SCH ×4 (05:56→22:08)
[2018-09-09] MEDS: metFORMIN HCL 500 MG TABLET (FP) PO SCH ×2 (06:09→17:32)
[2018-09-09] MEDS ORDERED: METHADONE HCL 10 MG TABLET (FOR DETOX USE ONLY) PO SCH (10:00)
[2018-09-09] MEDS: ALBUTEROL SO4 8 GM HFA INHALER IH PRN (10:24)
[2018-09-09] MEDS: NICOTINE 21 MG/24 HOURS TOPICAL PATCH TD SCH (10:25)
[2018-09-09] MEDS: HYDROCHLOROTHIAZIDE 25 MG TABLET (FP) PO SCH (10:25)
[2018-09-09] MEDS: PRENATAL VITAMINS W/ FOLIC ACID TABLET (FP) PO SCH (10:25)
[2018-09-09 10:34] LABS: HEMATOCRIT 44.2 % (35.4-49); HEMOGLOBIN 15.2 GM/dL (11.7-16.9); MCH 30.5 pg (25.7-33.7); MCHC 34.4 g/dl (32.0-35.9); MEAN CELL VOLUME 88.7 fl (80-96); RBC 4.99 M/mm3 (4.00-5.60); WHITE BLOOD COUNT 13.1 K/mm3 (4.0-10.0)
[2018-09-09 10:57] LABS: ALBUMIN 3.4 g/dl (3.4-5.0); ALK PHOS 116 U/L (45-117); ANION GAP 10 MMOL/L (8-16); BILIRUBIN,TOTAL 0.7 mg/dL (0.2-1); BLOOD UREA NITROGEN 7 mg/dL (7-18); CALCIUM 8.9 mg/dL (8.5-10.1); CHLORIDE 104 mmol/L (98-107); CO2 23 mmol/L (21-32); CREATININE 0.7 mg/dL (0.55-1.3); GLUCOSE,RANDOM 143 mg/dL (74-106); POTASSIUM 4.1 mmol/L (3.5-5.1); SGOT/AST 10 U/L (15-37); SGPT/ALT 17 U/L (13-61); SODIUM 138 mmol/L (136-145); TOT PROT 7.8 g/dl (6.4-8.2)
--- NOTE | 2018-09-09 18:16 | PN ---
[facility] CIWA - CIWA Score Nausea/Vomitin Muscle Tremors: 4-Moderate,w/Arms Extend Anxiety: 4-Mod. Anxious/Guarded Agitation: 4-Moderately Restless Paroxysmal Sweats: 3 Orientation: 0-Oriented Tacttile Disturbances: 0-None Auditory Disturbances: 0-None Visual Disturbances: 0-None Headache: 0-None Present CIWA-Ar Total Score: 17 [facility] COWS - Scale Resting Pulse: 1= [place] 81-100 Sweatin= Chills/Flushing Restless Observation: 3= Extraneous Movement Pupil Size: 0= Normal to Room Light Bone or Joint Aches: 2= Severe Diffuse Aches Runny Nose/ Eye Tearin= Runny Nose/Eyes GI Upset > 30mins: 3= Vomiting/Diarrhea Tremor Observation of Outstretched Hands: 2= Slight Tremor Visible Yawning Observation: 1= 1-2x During Session Anxiety or Irritability: 2=Irritable/Anxious Goose Flesh Skin: 0=Smooth Skin COWS Score: 17 [facility] Progress Note (SOAP) Subjective: Stomach ache, restless, tremor, sweating, interrupted sleep Objective: 09/09/18 18:13 Last Vital Signs Temp Pulse Resp BP Pulse Ox 96.8 F L 97 H 20 100/57 L 09/09/18 14:49 09/09/18 14:49 09/09/18 14:49 09/09/18 14:49 Laboratory Tests 09/08/18 09/08/18 09/09/18 18:30 18:41 05:58 WBC RBC Hgb Hct MCV MCH MCHC RDW Plt Count MPV Sodium Potassium Chloride Carbon Dioxide Anion Gap BUN Creatinine Creat Clearance w eGFR POC Glucometer 165 134 Random Glucose Calcium Total Bilirubin AST ALT Alkaline Phosphatase Total Protein Albumin Urine Color Yellow Urine Appearance Clear Urine pH 6.0 Ur Specific [place] 1.023 Urine Protein Negative Urine Glucose (UA) Negative Urine Ketones Negative Urine Blood Negative Urine Nitrite Negative Urine Bilirubin Negative Urine Urobilinogen 4.0 e.u/dl Ur Leukocyte Esterase Negative RPR Titer 09/09/18 09/09/18 09/09/18 07:15 07:15 07:15 WBC 13.1 H RBC 4.99 Hgb 15.2 Hct 44.2 MCV 88.7 MCH 30.5 MCHC 34.4 RDW 14.0 Plt Count MPV Sodium 138 Potassium 4.1 Chloride 104 Carbon Dioxide 23 Anion Gap 10 BUN 7 Creatinine 0.7 Creat Clearance w eGFR > 60 POC Glucometer Random Glucose 143 H Calcium 8.9 Total Bilirubin 0.7 AST 10 L ALT 17 Alkaline Phosphatase 116 Total Protein 7.8 Albumin 3.4 Urine Color Urine Appearance Urine pH Ur Specific [place] Urine Protein Urine Glucose (UA) Urine Ketones Urine Blood Urine Nitrite Urine Bilirubin Urine Urobilinogen Ur Leukocyte Esterase RPR Titer Nonreactive 09/09/18 16:22 WBC RBC Hgb Hct MCV MCH MCHC RDW Plt Count MPV Sodium Potassium Chloride Carbon Dioxide Anion Gap BUN Creatinine Creat Clearance w eGFR POC Glucometer 160 Random Glucose Calcium Total Bilirubin AST ALT Alkaline Phosphatase Total Protein Albumin Urine Color Urine Appearance Urine pH Ur Specific [place] Urine Protein Urine Glucose (UA) Urine Ketones Urine Blood Urine Nitrite Urine Bilirubin Urine Urobilinogen Ur Leukocyte Esterase RPR Titer Labs reviewed: wbc 13.1, hyperglycemia Assessment: 09/09/18 18:14 Withdrawal symptoms Noted with leukocytosis and hyperglycemia Plan: Continue detox Leukocytosis: asymptomatic, repeat CBC Hyperglycemia r/t DMT2: continue diabetic regimen
[2018-09-09] MEDS: MONTELUKAST NA 10 MG TABLET PO SCH (22:08)
[2018-09-09] MEDS: THIAMINE HCL 100 MG TABLET (FP) PO SCH (22:08)
[2018-09-09] MEDS: MELATONIN 5 MG TABLETS PO PRN (22:09)
[2018-09-10] MEDS: chlordiazePOXIDE HCL 25 MG CAPSULE PO SCH ×3 (05:43→17:17)
[2018-09-10] MEDS: metFORMIN HCL 500 MG TABLET (FP) PO SCH ×2 (07:04→17:17)
[2018-09-10 10:26] LABS: BASO % 0.6 % (0-2.0); EOS % 1.8 % (0-4.5); HEMATOCRIT 48.6 % (35.4-49); HEMOGLOBIN 15.7 GM/dL (11.7-16.9); LYMPH % 14.2 % (8-40); MCH 28.8 pg (25.7-33.7); MCHC 32.2 g/dl (32.0-35.9); MEAN CELL VOLUME 89.5 fl (80-96); MEAN PLT VOLUME 10.2 fl (7.5-11.1); MONO % 7.2 % (3.8-10.2); NEUT % 76.2 % (42.8-82.8); PLATELET COUNT 230 K/MM3 (134-434); RBC 5.43 M/mm3 (4.00-5.60); RDW 13.9 % (11.9-15.9); WHITE BLOOD COUNT 13.8 K/mm3 (4.0-10.0)
[2018-09-10] MEDS: METHADONE HCL 5 MG TABLET (FOR DETOX USE ONLY) PO SCH (10:43)
[2018-09-10] MEDS: PRENATAL VITAMINS W/ FOLIC ACID TABLET (FP) PO SCH (10:43)
[2018-09-10] MEDS: NICOTINE 21 MG/24 HOURS TOPICAL PATCH TD SCH (10:44)
[2018-09-10] MEDS: HYDROCHLOROTHIAZIDE 25 MG TABLET (FP) PO SCH (10:44)
--- NOTE | 2018-09-10 13:59 | PN ---
[facility] CIWA - CIWA Score Nausea/Vomitin-Mild Nausea/No Vomiting Muscle Tremors: 3 Anxiety: 2 Agitation: 2 Paroxysmal Sweats: 1-Minimal Palms Moist Orientation: 0-Oriented Tacttile Disturbances: 1-Very Mild Itch/Numbness Auditory Disturbances: 1-Very Mild Visual Disturbances: 0-None Headache: 2-Mild CIWA-Ar Total Score: 13 [facility] COWS - Scale Resting Pulse: 2= [place] 101-120 Sweatin= Chills/Flushing Restless Observation: 1= Difficult to Sit Still Pupil Size: 0= Normal to Room Light Bone or Joint Aches: 2= Severe Diffuse Aches Runny Nose/ Eye Tearin= Runny Nose/Eyes GI Upset > 30mins: 1= Stomach Cramp Tremor Observation of Outstretched Hands: 2= Slight Tremor Visible Yawning Observation: 1= 1-2x During Session Anxiety or Irritability: 1=Feels Anxious/Irritable Goose Flesh Skin: 0=Smooth Skin COWS Score: 13 [facility] Progress Note (SOAP) Subjective: body aches tremor anxiety restlessness sweat Objective: 09/10/18 13:58 Vital Signs Temperature 97.5 F L 09/10/18 13:20 Pulse Rate 116 H 09/10/18 13:20 Respiratory Rate 18 09/10/18 13:20 Blood Pressure 148/82 09/10/18 13:20 O2 Sat by Pulse Oximetry (%) Laboratory Last Values WBC 13.8 K/mm3 (4.0-10.0) H 09/10/18 07:00 RBC 5.43 M/mm3 (4.00-5.60) 09/10/18 07:00 Hgb 15.7 GM/dL (11.7-16.9) 09/10/18 07:00 Hct 48.6 % (35.4-49) 09/10/18 07:00 MCV 89.5 fl (80-96) 09/10/18 07:00 MCH 28.8 pg (25.7-33.7) 09/10/18 07:00 MCHC 32.2 g/dl (32.0-35.9) 09/10/18 07:00 RDW 13.9 % (11.9-15.9) 09/10/18 07:00 Plt Count 230 K/MM3 (134-434) 09/10/18 07:00 MPV 10.2 fl (7.5-11.1) 09/10/18 07:00 Absolute Neuts (auto) 10.5 K/mm3 (1.5-8.0) H 09/10/18 07:00 Neutrophils % 76.2 % (42.8-82.8) 09/10/18 07:00 Lymphocytes % 14.2 % (8-40) 09/10/18 07:00 Monocytes % 7.2 % (3.8-10.2) 09/10/18 07:00 Eosinophils % 1.8 % (0-4.5) 09/10/18 07:00 Basophils % 0.6 % (0-2.0) 09/10/18 07:00 Nucleated RBC % 0 % (0-0) 09/10/18 07:00 Sodium 138 mmol/L (136-145) 09/09/18 07:15 Potassium 4.1 mmol/L (3.5-5.1) 09/09/18 07:15 Chloride 104 mmol/L (98-107) 09/09/18 07:15 Carbon Dioxide 23 mmol/L (21-32) 09/09/18 07:15 Anion Gap 10 MMOL/L (8-16) 09/09/18 07:15 BUN 7 mg/dL (7-18) 09/09/18 07:15 Creatinine 0.7 mg/dL (0.55-1.3) 09/09/18 07:15 Creat Clearance w eGFR > 60 (>60) 09/09/18 07:15 POC Glucometer 150 UNITS (80-120) 09/10/18 05:42 Random Glucose 143 mg/dL (74-106) H 09/09/18 07:15 Calcium 8.9 mg/dL (8.5-10.1) 09/09/18 07:15 Total Bilirubin 0.7 mg/dL (0.2-1) 09/09/18 07:15 AST 10 U/L (15-37) L 09/09/18 07:15 ALT 17 U/L (13-61) 09/09/18 07:15 Alkaline Phosphatase 116 U/L (45-117) 09/09/18 07:15 Total Protein 7.8 g/dl (6.4-8.2) 09/09/18 07:15 Albumin 3.4 g/dl (3.4-5.0) 09/09/18 07:15 Urine Color Yellow 09/08/18 18:30 Urine Appearance Clear 09/08/18 18:30 Urine pH 6.0 (5.0-8.0) 09/08/18 18:30 Ur Specific [place] 1.023 (1.010-1.035) 09/08/18 18:30 Urine Protein Negative (NEGATIVE) 09/08/18 18:30 Urine Glucose (UA) Negative (NEGATIVE) 09/08/18 18:30 Urine Ketones Negative (NEGATIVE) 09/08/18 18:30 Urine Blood Negative (NEGATIVE) 09/08/18 18:30 Urine Nitrite Negative (NEGATIVE) 09/08/18 18:30 Urine Bilirubin Negative (<2.0 mg/dL) 09/08/18 18:30 Urine Urobilinogen 4.0 e.u/dl mg/dL (0.2-1.0) 09/08/18 18:30 Ur Leukocyte Esterase Negative (NEGATIVE) 09/08/18 18:30 RPR Titer Nonreactive (NONREACTIVE) 09/09/18 07:15 lab noted Assessment: 09/10/18 13:58 withdrawal sx Plan: continue detox
[2018-09-10] MEDS: MONTELUKAST NA 10 MG TABLET PO SCH (22:20)
[2018-09-10] MEDS: THIAMINE HCL 100 MG TABLET (FP) PO SCH (22:20)
[2018-09-10] MEDS: chlordiazePOXIDE 5 MG CAPSULE PO SCH (22:20)
[2018-09-10] MEDS: MELATONIN 5 MG TABLETS PO PRN (22:20)
[2018-09-11] MEDS: chlordiazePOXIDE HCL 25 MG CAPSULE PO PRN (02:37)
[2018-09-11] MEDS: chlordiazePOXIDE 5 MG CAPSULE PO SCH ×3 (05:59→16:38)
[2018-09-11] MEDS: metFORMIN HCL 500 MG TABLET (FP) PO SCH ×2 (06:18→16:38)
[2018-09-11] MEDS: PRENATAL VITAMINS W/ FOLIC ACID TABLET (FP) PO SCH (09:57)
[2018-09-11] MEDS: METHADONE HCL 5 MG TABLET (FOR DETOX USE ONLY) PO SCH (09:58)
[2018-09-11] MEDS: HYDROCHLOROTHIAZIDE 25 MG TABLET (FP) PO SCH (09:58)
[2018-09-11] MEDS: NICOTINE 21 MG/24 HOURS TOPICAL PATCH TD SCH (10:02)
--- NOTE | 2018-09-11 10:36 | PN ---
[facility] Progress Note (SOAP) Subjective: body aches joints pain tremor sweat trouble sleep at night Objective: 09/11/18 10:35 Vital Signs Temperature 97.6 F 09/11/18 09:17 Pulse Rate 124 H 09/11/18 09:17 Respiratory Rate 18 09/11/18 09:17 Blood Pressure 125/86 09/11/18 09:17 O2 Sat by Pulse Oximetry (%) Laboratory Last Values WBC 13.8 K/mm3 (4.0-10.0) H 09/10/18 07:00 RBC 5.43 M/mm3 (4.00-5.60) 09/10/18 07:00 Hgb 15.7 GM/dL (11.7-16.9) 09/10/18 07:00 Hct 48.6 % (35.4-49) 09/10/18 07:00 MCV 89.5 fl (80-96) 09/10/18 07:00 MCH 28.8 pg (25.7-33.7) 09/10/18 07:00 MCHC 32.2 g/dl (32.0-35.9) 09/10/18 07:00 RDW 13.9 % (11.9-15.9) 09/10/18 07:00 Plt Count 230 K/MM3 (134-434) 09/10/18 07:00 MPV 10.2 fl (7.5-11.1) 09/10/18 07:00 Absolute Neuts (auto) 10.5 K/mm3 (1.5-8.0) H 09/10/18 07:00 Neutrophils % 76.2 % (42.8-82.8) 09/10/18 07:00 Lymphocytes % 14.2 % (8-40) 09/10/18 07:00 Monocytes % 7.2 % (3.8-10.2) 09/10/18 07:00 Eosinophils % 1.8 % (0-4.5) 09/10/18 07:00 Basophils % 0.6 % (0-2.0) 09/10/18 07:00 Nucleated RBC % 0 % (0-0) 09/10/18 07:00 Sodium 138 mmol/L (136-145) 09/09/18 07:15 Potassium 4.1 mmol/L (3.5-5.1) 09/09/18 07:15 Chloride 104 mmol/L (98-107) 09/09/18 07:15 Carbon Dioxide 23 mmol/L (21-32) 09/09/18 07:15 Anion Gap 10 MMOL/L (8-16) 09/09/18 07:15 BUN 7 mg/dL (7-18) 09/09/18 07:15 Creatinine 0.7 mg/dL (0.55-1.3) 09/09/18 07:15 Creat Clearance w eGFR > 60 (>60) 09/09/18 07:15 POC Glucometer 159 UNITS (80-120) 09/11/18 05:58 Random Glucose 143 mg/dL (74-106) H 09/09/18 07:15 Calcium 8.9 mg/dL (8.5-10.1) 09/09/18 07:15 Total Bilirubin 0.7 mg/dL (0.2-1) 09/09/18 07:15 AST 10 U/L (15-37) L 09/09/18 07:15 ALT 17 U/L (13-61) 09/09/18 07:15 Alkaline Phosphatase 116 U/L (45-117) 09/09/18 07:15 Total Protein 7.8 g/dl (6.4-8.2) 09/09/18 07:15 Albumin 3.4 g/dl (3.4-5.0) 09/09/18 07:15 Urine Color Yellow 09/08/18 18:30 Urine Appearance Clear 09/08/18 18:30 Urine pH 6.0 (5.0-8.0) 09/08/18 18:30 Ur Specific [place] 1.023 (1.010-1.035) 09/08/18 18:30 Urine Protein Negative (NEGATIVE) 09/08/18 18:30 Urine Glucose (UA) Negative (NEGATIVE) 09/08/18 18:30 Urine Ketones Negative (NEGATIVE) 09/08/18 18:30 Urine Blood Negative (NEGATIVE) 09/08/18 18:30 Urine Nitrite Negative (NEGATIVE) 09/08/18 18:30 Urine Bilirubin Negative (<2.0 mg/dL) 09/08/18 18:30 Urine Urobilinogen 4.0 e.u/dl mg/dL (0.2-1.0) 09/08/18 18:30 Ur Leukocyte Esterase Negative (NEGATIVE) 09/08/18 18:30 RPR Titer Nonreactive (NONREACTIVE) 09/09/18 07:15 lab noted Assessment: 09/11/18 10:36 withdrawal sx Plan: continue detox
[2018-09-11] MEDS: chlordiazePOXIDE HCL 10 MG CAPSULE PO SCH (22:09)
[2018-09-11] MEDS: MONTELUKAST NA 10 MG TABLET PO SCH (22:09)
[2018-09-11] MEDS: THIAMINE HCL 100 MG TABLET (FP) PO SCH (22:09)
[2018-09-11] MEDS: ALBUTEROL SO4 8 GM HFA INHALER IH PRN (23:50)
[2018-09-12] MEDS: chlordiazePOXIDE HCL 10 MG CAPSULE PO SCH (05:38)
[2018-09-12] MEDS: metFORMIN HCL 500 MG TABLET (FP) PO SCH (07:09)
[2018-09-12] MEDS: NICOTINE 21 MG/24 HOURS TOPICAL PATCH TD SCH (09:02)
[2018-09-12] MEDS: HYDROCHLOROTHIAZIDE 25 MG TABLET (FP) PO SCH (09:02)
[2018-09-12] MEDS: PRENATAL VITAMINS W/ FOLIC ACID TABLET (FP) PO SCH (09:02)
[2018-09-12 09:32] VITALS: BP 121/80; PULSE 118; TEMP 98.6
[2018-09-12] MEDS ORDERED: METHADONE HCL 10 MG TABLET (FOR DETOX USE ONLY) PO SCH (10:00)
--- NOTE | 2018-09-12 13:31 | DS ---
[facility] Detox Discharge Summary Admission Date: 09/08/18 Discharge Date: 09/12/18 - History Present History: Alcohol Dependence, Opioid Dependence Additional Comments: 53 years old male admitted on 09/08/18 for alcohol and opiate withdrawal stability completed detox regimen tolerated well alert no acute distress aftercare [facility] - Physical Exam Results Vital Signs: Vital Signs Temperature 98.6 F 09/12/18 09:31 Pulse Rate 118 H 09/12/18 09:31 Respiratory Rate 20 09/12/18 09:31 Blood Pressure 121/80 09/12/18 09:31 O2 Sat by Pulse Oximetry (%) Pertinent Admission Physical Exam Findings: alcohol and opiate withdrawal sx Vital Signs Temperature 98.6 F 09/12/18 09:31 Pulse Rate 118 H 09/12/18 09:31 Respiratory Rate 20 09/12/18 09:31 Blood Pressure 121/80 09/12/18 09:31 O2 Sat by Pulse Oximetry (%) Laboratory Last Values WBC 13.8 K/mm3 (4.0-10.0) H 09/10/18 07:00 RBC 5.43 M/mm3 (4.00-5.60) 09/10/18 07:00 Hgb 15.7 GM/dL (11.7-16.9) 09/10/18 07:00 Hct 48.6 % (35.4-49) 09/10/18 07:00 MCV 89.5 fl (80-96) 09/10/18 07:00 MCH 28.8 pg (25.7-33.7) 09/10/18 07:00 MCHC 32.2 g/dl (32.0-35.9) 09/10/18 07:00 RDW 13.9 % (11.9-15.9) 09/10/18 07:00 Plt Count 230 K/MM3 (134-434) 09/10/18 07:00 MPV 10.2 fl (7.5-11.1) 09/10/18 07:00 Absolute Neuts (auto) 10.5 K/mm3 (1.5-8.0) H 09/10/18 07:00 Neutrophils % 76.2 % (42.8-82.8) 09/10/18 07:00 Lymphocytes % 14.2 % (8-40) 09/10/18 07:00 Monocytes % 7.2 % (3.8-10.2) 09/10/18 07:00 Eosinophils % 1.8 % (0-4.5) 09/10/18 07:00 Basophils % 0.6 % (0-2.0) 09/10/18 07:00 Nucleated RBC % 0 % (0-0) 09/10/18 07:00 Sodium 138 mmol/L (136-145) 09/09/18 07:15 Potassium 4.1 mmol/L (3.5-5.1) 09/09/18 07:15 Chloride 104 mmol/L (98-107) 09/09/18 07:15 Carbon Dioxide 23 mmol/L (21-32) 09/09/18 07:15 Anion Gap 10 MMOL/L (8-16) 09/09/18 07:15 BUN 7 mg/dL (7-18) 09/09/18 07:15 Creatinine 0.7 mg/dL (0.55-1.3) 09/09/18 07:15 Creat Clearance w eGFR > 60 (>60) 09/09/18 07:15 POC Glucometer 156 UNITS (80-120) 09/12/18 05:38 Random Glucose 143 mg/dL (74-106) H 09/09/18 07:15 Calcium 8.9 mg/dL (8.5-10.1) 09/09/18 07:15 Total Bilirubin 0.7 mg/dL (0.2-1) 09/09/18 07:15 AST 10 U/L (15-37) L 09/09/18 07:15 ALT 17 U/L (13-61) 09/09/18 07:15 Alkaline Phosphatase 116 U/L (45-117) 09/09/18 07:15 Total Protein 7.8 g/dl (6.4-8.2) 09/09/18 07:15 Albumin 3.4 g/dl (3.4-5.0) 09/09/18 07:15 Urine Color Yellow 09/08/18 18:30 Urine Appearance Clear 09/08/18 18:30 Urine pH 6.0 (5.0-8.0) 09/08/18 18:30 Ur Specific [place] 1.023 (1.010-1.035) 09/08/18 18:30 Urine Protein Negative (NEGATIVE) 09/08/18 18:30 Urine Glucose (UA) Negative (NEGATIVE) 09/08/18 18:30 Urine Ketones Negative (NEGATIVE) 09/08/18 18:30 Urine Blood Negative (NEGATIVE) 09/08/18 18:30 Urine Nitrite Negative (NEGATIVE) 09/08/18 18:30 Urine Bilirubin Negative (<2.0 mg/dL) 09/08/18 18:30 Urine Urobilinogen 4.0 e.u/dl mg/dL (0.2-1.0) 09/08/18 18:30 Ur Leukocyte Esterase Negative (NEGATIVE) 09/08/18 18:30 RPR Titer Nonreactive (NONREACTIVE) 09/09/18 07:15 lab noted - Treatment Hospital Course: Detox Protocol Followed, Detoxed Safely, Responded well, Discharged Condition Good, Rehab Referral Accepted Patient has Accepted a Rehab Referral to: [facility] - Medication Discharge Medications: Ambulatory Orders Nicotine Patch [Nicoderm Patch -] 14 mg TD DAILY #14 patch 06/26/18 metFORMIN HCL [Metformin HCl] 500 mg PO BID #60 tablet 06/26/18 Albuterol Sulfate Inhaler - [Ventolin HFA Inhaler -] 2 inh PO Q4H PRN #1 inhaler 09/12/18 Hydrochlorothiazide [Hctz -] 25 mg PO DAILY #30 tablet 09/12/18 metFORMIN HCL [Glucophage -] 500 mg PO BIDAC #60 tablet 09/12/18 - Diagnosis (1) Alcohol dependence with uncomplicated withdrawal Status: Acute (2) DM2 (diabetes mellitus, type 2) Status: Chronic Qualifiers: Diabetes mellitus fdc insulin use: without termite renewal inspector use Diabetes mellitus complication status: with unspecified complications Qualified Code(s) : E11.8 - Type 2 diabetes mellitus with unspecified complications (3) Leukocytosis Status: Chronic Qualifiers: Leukocytosis type: unspecified Qualified Code(s): D72.829 - Elevated white blood cell count, unspecified (4) Obesity Status: Chronic Qualifiers: Obesity type: unspecified obesity type Obesity classification: adult class 3 (BMI >= 40) Serious obesity comorbidity presence: with serious comorbidity Body mass index: BMI 50.0-59.9 Qualified Code(s): E66.01 - Morbid (severe) obesity due to excess calories; Z68.43 - Body mass index (BMI) 50-59.9, adult (5) Opioid dependence with withdrawal Status: Acute (6) Asthma Status: Chronic Qualifiers: Asthma severity: mild Asthma persistence: intermittent Asthma complication type: with status asthmaticus Qualified Code(s): J45.22 - Mild intermittent asthma with status asthmaticus (7) Hypertension Status: Chronic Qualifiers: Hypertension type: unspecified Qualified Code(s): I10 - Essential (primary ) hypertension (8) Nicotine dependence Status: Acute Qualifiers: Nicotine product type: cigarettes Substance use status: in withdrawal Qualified Code(s): F17.213 - Nicotine dependence, cigarettes, with withdrawal (9) Schizophrenia Status: Suspected Qualifiers: Schizophrenia type: unspecified Qualified Code(s): F20.9 - Schizophrenia, unspecified - AMA Did Patient Leave Against Medical Advice: No
[2018-09-13] MEDS ORDERED: METHADONE HCL 5 MG TABLET (FOR DETOX USE ONLY) PO SCH (06:00)
== END 2018-09-12 09:06 | disposition home or self-care (01) | DRG 897 ==
LOC: YASAS 14:12 → Y3N 18:13
PROC: HZ2ZZZZ Detoxification Services for Substance Abuse Treatment (ICD-10-PCS; principal; 2018-09-08)
DX: F11.23 Opioid dependence with withdrawal (principal); Z68.43 Body mass index [BMI] 50.0-59.9, adult; F10.220 Alcohol dependence with intoxication, uncomplicated; F12.20 Cannabis dependence, uncomplicated; F20.9 Schizophrenia, unspecified; I10 Essential (primary) hypertension; E11.65 Type 2 diabetes mellitus with hyperglycemia; D72.829 Elevated white blood cell count, unspecified; R55 Syncope and collapse; E66.01 Morbid (severe) obesity due to excess calories; Z79.84 Long term (current) use of oral hypoglycemic drugs
CPT/HCPCS: 36415; 80053; 81003; 82962; 85025; 85027; 86593; 94640